=== PATIENT | female | born 1990 ===

== ENCOUNTER 2025-04-06 09:00 | Day surgery (SDC) | payer OTHER ==
[2025-03-30 09:46] VITALS: BP 98/66
[~2025-04-06] VITALS: Ht 160 cm; Wt 95.3 kg
[2025-04-06] MEDS ORDERED: POVIDONE-IODINE 118 ML BOTT TOP ONE (12:33)
[2025-04-06] MEDS ORDERED: SUGAMMADEX SODIUM 200 MG/2 ML VIAL IV ONE (13:54)
[2025-04-06] MEDS ORDERED: ONDANSETRON HCL 2 MG/ML VIAL IV ONE (15:45)
[2025-04-06] MEDS ORDERED: KETOROLAC TROMETHAMINE 60 MG VIAL IM ONE ×2 (16:00→16:20)
== END 2025-04-06 17:20 | disposition home or self-care (01) ==
LOC: CIR.AMB 09:00
PROVIDERS: ATTEND Obstetrics & Gynecology
DX: N70.91 Salpingitis, unspecified (principal); R10.2 Pelvic and perineal pain